=== PATIENT | female | born 1980 | race Caucasian/White ===

== ENCOUNTER 2020-04-24 13:08 | Emergency (ER) | payer BC ==
[~2020-04-24] VITALS: Ht 167.6 cm; Wt 85.3 kg
[2020-04-24 13:10] VITALS: BP 136/97
--- NOTE | 2020-04-24 13:10 | NUR ---
Pt biba from home and placed in bed 9 for COVID precautions.
--- NOTE | 2020-04-24 13:14 | NUR ---
39/F biba from home c/o syncopal episode while in the shower. Pt states she was in the shower when she passed out. Pt was found by her daughter in the shower. Pt states she came to and saw her daughter trying to help her out of the shower. Pt does not know for how long she lost conciousness. Patient is awake and alert x4. Pt also tested positive for covid on 04/19/2020. Hx HTN.
[2020-04-24] MEDS ORDERED: AZITHROMYCIN 500 MG in DEXTROSE 5% 250 ML IV ONE (13:35)
[2020-04-24] MEDS ORDERED: ZINC SULF 220 MG CAP PO ONE (13:35)
[2020-04-24] MEDS ORDERED: DEXAMETHASONE 10 MG/ML VIAL IVP ONE (13:35)
--- NOTE | 2020-04-24 13:45 | NUR ---
RSV, FLU AND COVID SWABS COLLECTED AT THIS TIME
[2020-04-24] MEDS ORDERED: AZITHROMYCIN 500 MG INJ VIAL IV ONE (14:01)
[2020-04-24 14:08] LABS: BASOPHILS # (AUTO) 0.1 K/uL (0.00-0.22); BASOPHILS % (AUTO) 2.3 % (0.0-2.0); HEMATOCRIT 40.3 % (36-48); HEMOGLOBIN 13.8 g/dL (12.0-16.0); LYMPHOCYTES # (AUTO) 1.2 K/uL (2.5-16.5); LYMPHOCYTES % (AUTO) 23.1 % (20.5-51.1); MEAN CORPUSCULAR HEMOGLOBIN 30 pg (27-31); MEAN CORPUSCULAR HGB CONC 34 g/dL (33-37); MEAN CORPUSCULAR VOLUME 86.4 fL (80-94); MONOCYTES # (AUTO) 0.3 K/uL (0.8-1.0); MONOCYTES % (AUTO) 6.1 % (1.7-9.3); NEUTROPHILS # (AUTO) 3.5 K/uL (1.8-7.7); NEUTROPHILS % (AUTO) 68.5 % (42.2-75.2); PLATELET COUNT (AUTO) 255 K/uL (140-450); RED BLOOD CELL COUNT(AUTO) 4.66 MIL/uL (4.20-5.40); WHITE BLOOD COUNT (AUTO) 5.2 K/uL (4.8-10.8)
[2020-04-24 14:23] LABS: PROTHROMBIN TIME 9.3 secs (10.8-13.4)
[2020-04-24 14:26] LABS: C-REACTIVE PROTEIN QUANT 3.5 mg/dL (0.0-0.9)
[2020-04-24] MEDS ORDERED: PROMETH/CODEINE 6.25-10MG/5ML 5 ML UDC PO ONE (14:30)
[2020-04-24] MEDS ORDERED: ASCO500T95 PO (14:41)
[2020-04-24] MEDS ORDERED: AZIT250T3 PO (14:41)
[2020-04-24] MEDS ORDERED: ZINC220C28 PO (14:41)
[2020-04-24] MEDS ORDERED: DEC4 PO (14:41)
[2020-04-24] MEDS ORDERED: PROM473S4 PO (14:41)
[2020-04-24 14:45] LABS: BILIRUBIN,URINE NEGATIVE (NEGATIVE); BLOOD, URINE NEGATIVE (NEGATIVE); COLOR,URINE YELLOW (YELLOW); LEUKOCYTE ESTERASE ,URINE TRACE (NEGATIVE); NITRITE, URINE NEGATIVE (NEGATIVE); UGLUCOSE NEGATIVE (NEGATIVE)
[2020-04-24 14:45] LABS: ANION GAP 15.1 (8-16); CARBON DIOXIDE 26.4 mmol/L (21-32); CREATININE 0.7 mg/dL (0.6-1.3); LACTATE DEHYDROGENASE 213 U/L (81-234); POTASSIUM 3.5 mmol/L (3.5-5.1); TOTAL BILIRUBIN 0.7 mg/dL (0.0-1.0)
[2020-04-24 14:49] LABS: APPEARANCE,URINE HAZY (CLEAR)
[2020-04-24 14:50] LABS: RSV NEGATIVE (NEGATIVE)
[2020-04-24 14:52] LABS: D-DIMER 615 ng/ml (0-400); FIBRINOGEN > 500 mg/dL (200-400)
[2020-04-24 15:07] VITALS: BP 136/97
--- NOTE | 2020-04-24 15:07 | NUR ---
Patient discharged with v/s stable. Written and verbal after care instructions given and explained. Patient alert, oriented and verbalized understanding of instructions. Ambulatory with steady gait. All questions addressed prior to discharge. ID band removed. Patient advised to follow up with PMD. Rx of ASCORBIC ACID, AZITHROMYCIN, DEXAMETHASONE, PROMETHAZINE, ZINC SULFATE given. Patient educated on indication of medication including possible reaction and side effects. Opportunity to ask questions provided and answered.
[2020-04-24 15:13] LABS: RBC,URINE 0-5 /HPF (0-5)
--- NOTE | 2020-04-25 19:19 | NUR ---
LATE ENTRY- ZITHROMAX IVPB DISCONTINUED AT 1507.
--- NOTE | 2020-04-28 23:37 | NUR ---
LATE ENTRY- Positive COVID-19 test results were received from lab. A copy of the test results were placed in infection control mailbox.
== END 2020-04-24 15:07 | disposition home or self-care (01) ==
LOC: MED 13:08
DX: U07.1 COVID-19 (principal); J12.82 Pneumonia due to coronavirus disease 2019; I10 Essential (primary) hypertension; Z79.899 Other long term (current) drug therapy
CPT/HCPCS: 36415; 36600; 70450; 71045; 80053; 81001; 82550; 82728; 82803; 83605; 83615; 83880; 84484; 85025; 85379; 85384; 85610; 85730; 86140; 87040; 87086; 87420; 87804; 93005; 96365; 96375; 99285; J0456; J1100; J7060; U0003

== ENCOUNTER 2020-04-29 11:17 | Emergency (ER) | payer BC ==
[~2020-04-29] VITALS: Ht 154.9 cm; Wt 81.6 kg
[~2020-04-29 11:17] MED LIST: ASCO500T95 PO; AZIT250T3 PO; DEC4 PO; PROM473S4 PO; ZINC220C28 PO
[2020-04-29 11:26] VITALS: BP 146/98
--- NOTE | 2020-04-29 11:28 | NUR ---
Patient ambulated to bed 8 with steady/even gait.
--- NOTE | 2020-04-29 11:32 | NUR ---
39 y/o F coming in from home with c/c Shortness of breath. Patient states COVID-like symptoms since yesterday. Patient states shortness of breath that worsens upon exertion. Patient states she tested Covid positive on 04/19/20, and retested positive on the . Patient states she was seen at [facility] on 04/24/20 after a syncope episode. She was discharged from [facility] with antibiotics of unknown type, which she completed yesterday on 04/28. Patient states BM yesterday morning normal, brown/semi-formed. Pt states associated fever, and cough upon exertion or deep exhalation. Patient denies chills, N/V/D, abdominal pain, constipation, chest pain. Lung sounds diminished lower lobes. Respirations even/unlabored. Pt placed onto captain airline pilot, bed locked in lowest position, side rails x 1, call light in reach. PMH: HTN Meds: Lisinopril NKA Sx: 2017
[2020-04-29] MEDS ORDERED: AZITHROMYCIN 500 MG in DEXTROSE 5% 250 ML IV ONE (11:40)
[2020-04-29] MEDS ORDERED: DEXAMETHASONE 10 MG/ML VIAL IVP ONE (11:40)
--- NOTE | 2020-04-29 11:55 | NUR ---
EMT at bedside for EKG.
--- NOTE | 2020-04-29 11:55 | NUR ---
Makayla/Novel covid swabs, RSV swab, Influenza A/B swab, and blood samples collected, handed to artur Avery tech in ER.
--- NOTE | 2020-04-29 11:57 | NUR ---
Lab at bedside.
[2020-04-29] MEDS ORDERED: AZITHROMYCIN 500 MG INJ VIAL IV ONE (12:05)
[2020-04-29 12:11] LABS: BASOPHILS % (AUTO) 0.2 % (0.0-2.0); EOSINOPHILS # (AUTO) 0.1 K/uL (0-0.4); EOSINOPHILS % (AUTO) 1.2 % (0.0-4.0); HEMATOCRIT 36.4 % (36-48); HEMOGLOBIN 12.7 g/dL (12.0-16.0); LYMPHOCYTES # (AUTO) 1.5 K/uL (2.5-16.5); LYMPHOCYTES % (AUTO) 14.6 % (20.5-51.1); MEAN CORPUSCULAR HEMOGLOBIN 30 pg (27-31); MEAN CORPUSCULAR HGB CONC 35 g/dL (33-37); MEAN CORPUSCULAR VOLUME 86.3 fL (80-94); MONOCYTES # (AUTO) 0.6 K/uL (0.8-1.0); MONOCYTES % (AUTO) 5.7 % (1.7-9.3); NEUTROPHILS # (AUTO) 8.1 K/uL (1.8-7.7); NEUTROPHILS % (AUTO) 78.3 % (42.2-75.2); PLATELET COUNT (AUTO) 378 K/uL (140-450); RED BLOOD CELL COUNT(AUTO) 4.22 MIL/uL (4.20-5.40); RED CELL DISTRIBUTION WIDTH 13.3 % (11.6-13.7); WHITE BLOOD COUNT (AUTO) 10.4 K/uL (4.8-10.8)
--- NOTE | 2020-04-29 12:20 | NUR ---
RT at bedside for ABG draw
[2020-04-29 12:23] LABS: PROTHROMBIN TIME 9.3 secs (10.8-13.4)
[2020-04-29 12:26] LABS: ALBUMIN 3.1 g/dL (3.4-5.0); CARBON DIOXIDE 25.3 mmol/L (21-32); CREATININE 0.6 mg/dL (0.6-1.3); POTASSIUM 3.3 mmol/L (3.5-5.1); TOTAL BILIRUBIN 0.4 mg/dL (0.0-1.0)
[2020-04-29 12:41] LABS: RSV NEGATIVE (NEGATIVE)
--- NOTE | 2020-04-29 12:41 | NUR ---
Patient transported to restroom via wheelchair, returned to bed and placed back onto residential monitor. Bed locked in lowest position, side rails x 1, call light in reach.
[2020-04-29 12:42] LABS: C-REACTIVE PROTEIN QUANT 9.8 mg/dL (0.0-0.9)
--- NOTE | 2020-04-29 12:45 | NUR ---
Urine sample collected, walked to lab and handed to artur Avery tech.
[2020-04-29 12:47] LABS: LACTATE DEHYDROGENASE 282 U/L (81-234)
[2020-04-29 13:21] LABS: APPEARANCE,URINE CLEAR (CLEAR); BILIRUBIN,URINE 1+ (NEGATIVE); BLOOD, URINE NEGATIVE (NEGATIVE); COLOR,URINE YELLOW (YELLOW); LEUKOCYTE ESTERASE ,URINE NEGATIVE (NEGATIVE); NITRITE, URINE NEGATIVE (NEGATIVE); PH,URINE 6.5 (5.0-9.0); UGLUCOSE NEGATIVE (NEGATIVE)
[2020-04-29] MEDS ORDERED: ASCO500T95 PO (14:07)
[2020-04-29] MEDS ORDERED: IVER3TAB2 PO (14:07)
[2020-04-29] MEDS ORDERED: ZINC220C28 PO (14:07)
--- NOTE | 2020-04-29 14:23 | NUR ---
Dr. Caldwell is reevaluating patient at bedside.
[2020-04-29 14:38] VITALS: BP 141/83
--- NOTE | 2020-04-29 14:39 | NUR ---
Patient discharged with v/s stable. Written and verbal after care instructions given and explained. Patient alert, oriented and verbalized understanding of instructions. Wheel Chair Assisted with to car. All questions addressed prior to discharge. ID band removed. Patient advised to follow up with PMD. Rx of IVERMECTIN 3MG TAB PO BID FOR 10DAYS, VITAMIN C 500MG PO BID,. AND ZINC 220MG BID PO FOR 10DAYS given. Patient educated on indication of medication including possible reaction and side effects. Opportunity to ask questions provided and answered.
--- NOTE | 2020-05-01 00:12 | NUR ---
LATE ENTRY- Positive COVID-19 test results were received from lab. A copy of the test results were placed in infection control mailbox.
--- NOTE | 2020-05-02 08:10 | NUR ---
LATE ENTRY -- ZITHROMAX INFUSION COMPLETED 131 04/29/20
== END 2020-04-29 14:39 | disposition home or self-care (01) ==
LOC: MED 11:17
DX: U07.1 COVID-19 (principal); J12.89 Other viral pneumonia; I10 Essential (primary) hypertension; Z79.899 Other long term (current) drug therapy
CPT/HCPCS: 36415; 36600; 71045; 80053; 81003; 82550; 82728; 82803; 83605; 83615; 83880; 84484; 85025; 85379; 85384; 85610; 85730; 86140; 87040; 87086; 87420; 87426; 87804; 93005; 96365; 96375; 99285; J0456; J1100; J7060; U0003

== ENCOUNTER 2020-07-04 05:35 | Emergency (ER) | payer BC ==
[~2020-07-04] VITALS: Ht 154.9 cm; Wt 83.5 kg
[~2020-07-04 05:35] MED LIST changes: +IVER3TAB2 PO
[2020-07-04 05:37] VITALS: BP 151/91
--- NOTE | 2020-07-04 05:37 | NUR ---
TO BED AMBULATORY
--- NOTE | 2020-07-04 06:48 | NUR ---
Dr. Brown examining patient.
--- NOTE | 2020-07-04 07:30 | NUR ---
REPORT RECEIVED FROM JENIFER AND LUIS MIGUEL DURAN, TRANSFER OF CARE AT THIS TIME
[2020-07-04 07:36] LABS: BASOPHILS % (AUTO) 0.4 % (0.0-2.0); EOSINOPHILS # (AUTO) 0.1 K/uL (0-0.4); EOSINOPHILS % (AUTO) 1.3 % (0.0-4.0); HEMATOCRIT 36.2 % (36-48); HEMOGLOBIN 12.6 g/dL (12.0-16.0); LYMPHOCYTES # (AUTO) 1.2 K/uL (2.5-16.5); MEAN CORPUSCULAR HEMOGLOBIN 31 pg (27-31); MEAN CORPUSCULAR HGB CONC 35 g/dL (33-37); MEAN CORPUSCULAR VOLUME 88.3 fL (80-94); MONOCYTES # (AUTO) 0.6 K/uL (0.8-1.0); MONOCYTES % (AUTO) 6.3 % (1.7-9.3); NEUTROPHILS # (AUTO) 7.3 K/uL (1.8-7.7); PLATELET COUNT (AUTO) 296 K/uL (140-450); RED CELL DISTRIBUTION WIDTH 13.1 % (11.6-13.7); WHITE BLOOD COUNT (AUTO) 9.2 K/uL (4.8-10.8)
[2020-07-04] MEDS: NACL 0.9% 1,000 ML IV ONE (07:41)
[2020-07-04] MEDS: KETOROLAC 15 MG/ML VIAL IVP ONE (07:41)
[2020-07-04] MEDS: MORPHINE SULFATE 2 MG/ML SYR IVP ONE (07:42)
[2020-07-04 07:47] LABS: APPEARANCE,URINE CLEAR (CLEAR); BILIRUBIN,URINE NEGATIVE (NEGATIVE); COLOR,URINE YELLOW (YELLOW); LEUKOCYTE ESTERASE ,URINE TRACE (NEGATIVE); NITRITE, URINE NEGATIVE (NEGATIVE); UGLUCOSE NEGATIVE (NEGATIVE)
[2020-07-04 07:48] LABS: ANION GAP 12.2 (8-16); CARBON DIOXIDE 25.3 mmol/L (21-32); CREATININE 0.6 mg/dL (0.6-1.3); POTASSIUM 3.5 mmol/L (3.5-5.1)
[2020-07-04 07:54] LABS: ALBUMIN 3.6 g/dL (3.4-5.0); TOTAL BILIRUBIN 0.8 mg/dL (0.0-1.0)
[2020-07-04 08:06] LABS: WBC,URINE 0-5 /HPF (0-5)
[2020-07-04 08:07] LABS: BLOOD, URINE 1+ (NEGATIVE); RBC,URINE 0-5 /HPF (0-5)
--- NOTE | 2020-07-04 08:51 | NUR ---
PT ALERT AND AWAKE, BREATHING EVEN AND UNLABORED. NO DISTRESS NOTED.
[2020-07-04] MEDS: AMOXIL/CLAVULANATE 875/125 MG 1 TAB PO ONE (09:49)
[2020-07-04] MEDS ORDERED: AMOX1TAB8 PO (09:54)
[2020-07-04] MEDS ORDERED: ONDA-24 PO (09:54)
[2020-07-04] MEDS ORDERED: IBUP-2213 PO (09:54)
--- NOTE | 2020-07-04 10:05 | NUR ---
Patient discharged with v/s stable. Written and verbal after care instructions about diverticulitis given and explained. Patient alert, oriented and verbalized understanding of instructions. Ambulatory with steady gait. All questions addressed prior to discharge. ID band removed. Patient advised to follow up with PMD. Rx of amox-clav, ibuprofen, zofran given. Patient educated on indication of medication including possible reaction and side effects. Opportunity to ask questions provided and answered.
[2020-07-04 10:10] VITALS: BP 45/90
--- NOTE | 2020-07-06 19:32 | NUR ---
LATE ENTRY-- 0.9% NS BOLUS DISCONTINUED AT 0900
== END 2020-07-04 10:05 | disposition home or self-care (01) ==
LOC: MED 05:35
DX: K57.90 Diverticulosis of intestine, part unspecified, without perforation or abscess without bleeding (principal)
CPT/HCPCS: 36415; 74177; 80053; 81001; 81025; 83690; 85025; 96361; 96374; 96375; 99285; J1885; J2270; J7030; Q9967

== ENCOUNTER 2020-07-17 09:16 | Emergency (ER) | payer BC ==
[~2020-07-17] VITALS: Ht 154.9 cm; Wt 88.5 kg
[~2020-07-17 09:16] MED LIST changes: +AMOX1TAB8 PO; +IBUP-2213 PO; +ONDA-24 PO
[2020-07-17 09:25] VITALS: BP 175/103
[2020-07-17] MEDS ORDERED: ONDANSETRON 4 MG/2 ML VIAL IVP ONE (09:50)
[2020-07-17] MEDS ORDERED: NACL 0.9% 1,000 ML IV SCH (09:50)
[2020-07-17] MEDS ORDERED: fentaNYL citrate 0.05 MG/ML VIAL IVP ONE (09:50)
[2020-07-17 10:10] LABS: BASOPHILS # (AUTO) 0.1 K/uL (0.00-0.22); BASOPHILS % (AUTO) 0.8 % (0.0-2.0); EOSINOPHILS # (AUTO) 0.2 K/uL (0-0.4); EOSINOPHILS % (AUTO) 2.7 % (0.0-4.0); HEMATOCRIT 35.9 % (36-48); HEMOGLOBIN 12.4 g/dL (12.0-16.0); LYMPHOCYTES # (AUTO) 2.1 K/uL (2.5-16.5); LYMPHOCYTES % (AUTO) 29.6 % (20.5-51.1); MEAN CORPUSCULAR HEMOGLOBIN 31 pg (27-31); MEAN CORPUSCULAR HGB CONC 35 g/dL (33-37); MONOCYTES # (AUTO) 0.4 K/uL (0.8-1.0); MONOCYTES % (AUTO) 5.9 % (1.7-9.3); NEUTROPHILS # (AUTO) 4.3 K/uL (1.8-7.7); PLATELET COUNT (AUTO) 303 K/uL (140-450); RED BLOOD CELL COUNT(AUTO) 4.08 MIL/uL (4.20-5.40); WHITE BLOOD COUNT (AUTO) 7.1 K/uL (4.8-10.8)
[2020-07-17 10:31] LABS: PROTHROMBIN TIME 9.7 secs (10.8-13.4)
[2020-07-17 10:42] LABS: ANION GAP 11.7 (8-16); CARBON DIOXIDE 27.1 mmol/L (21-32); CREATININE 0.6 mg/dL (0.6-1.3); POTASSIUM 3.8 mmol/L (3.5-5.1); TOTAL BILIRUBIN 0.5 mg/dL (0.0-1.0)
[2020-07-17 12:25] VITALS: BP 175/103
== END 2020-07-17 12:26 | disposition home or self-care (01) ==
LOC: MED 09:16
DX: K57.92 Diverticulitis of intestine, part unspecified, without perforation or abscess without bleeding (principal); R19.7 Diarrhea, unspecified; R11.0 Nausea; I10 Essential (primary) hypertension; Z90.49 Acquired absence of other specified parts of digestive tract; Z98.890 Other specified postprocedural states; Z79.899 Other long term (current) drug therapy
CPT/HCPCS: 36415; 74177; 80053; 81002; 81025; 83605; 85025; 85610; 85730; 87040; 93005; 96361; 96374; 96375; 99285; J2405; J3010; J7030; Q9967; 99284

== ENCOUNTER 2020-08-06 10:41 | Emergency (ER) | payer BC ==
[~2020-08-06] VITALS: Ht 154.9 cm; Wt 82.6 kg
[2020-08-06 10:47] VITALS: BP 161/89
--- NOTE | 2020-08-06 11:01 | NUR ---
39 Y/O M BIB SELF FROM HOME, PATIENT PRESENTS TO ED WITH SHARP RLQ ABD PAIN AND NAUSEA. PT STATES SHE TOOK 3 TESTS WITH ALL OF THEM BEING POSITIVE. DENIES V/D, CONSTIPATION, DYSURIA; SKIN IS PINK/WARM/DRY; AAOX4 WITH EVEN AND STEADY GAIT; LUNGS CLEAR BL; HR EVEN AND REGULAR; PT DENIES ANY FEVER, CP, SOB, OR COUGH AT THIS TIME; PATIENT STATES PAIN OF 9/10 AT THIS TIME; VSS; PATIENT POSITIONED FOR COMFORT; HOB ELEVATED; BEDRAILS UP X2; BED DOWN. ER MD MADE AWARE OF PT STATUS. PMH: HTN, DIVERTICULITIS NKA
--- NOTE | 2020-08-06 11:31 | NUR ---
US AT BEDSIDE.
[2020-08-06 12:32] LABS: BASOPHILS % (AUTO) 0.7 % (0.0-2.0); EOSINOPHILS # (AUTO) 0.2 K/uL (0-0.4); EOSINOPHILS % (AUTO) 2.8 % (0.0-4.0); HEMOGLOBIN 11.7 g/dL (12.0-16.0); LYMPHOCYTES % (AUTO) 28.5 % (20.5-51.1); MEAN CORPUSCULAR HEMOGLOBIN 30 pg (27-31); MEAN CORPUSCULAR HGB CONC 35 g/dL (33-37); MEAN CORPUSCULAR VOLUME 87.8 fL (80-94); MONOCYTES # (AUTO) 0.5 K/uL (0.8-1.0); MONOCYTES % (AUTO) 6.5 % (1.7-9.3); NEUTROPHILS # (AUTO) 4.4 K/uL (1.8-7.7); NEUTROPHILS % (AUTO) 61.5 % (42.2-75.2); PLATELET COUNT (AUTO) 263 K/uL (140-450); RED BLOOD CELL COUNT(AUTO) 3.88 MIL/uL (4.20-5.40); RED CELL DISTRIBUTION WIDTH 12.7 % (11.6-13.7); WHITE BLOOD COUNT (AUTO) 7.1 K/uL (4.8-10.8)
--- NOTE | 2020-08-06 14:13 | NUR ---
URINE WAS COLLECTED AND GIVEN TO ALMA
[2020-08-06] MEDS ORDERED: ACETAMINOPHEN 325 MG TAB PO ONE (14:35)
[2020-08-06 14:51] LABS: BILIRUBIN,URINE NEGATIVE (NEGATIVE); BLOOD, URINE 2+ (NEGATIVE); COLOR,URINE YELLOW (YELLOW); LEUKOCYTE ESTERASE ,URINE TRACE (NEGATIVE); NITRITE, URINE NEGATIVE (NEGATIVE); UGLUCOSE NEGATIVE (NEGATIVE)
[2020-08-06 14:53] LABS: APPEARANCE,URINE HAZY (CLEAR)
[2020-08-06 15:01] LABS: RBC,URINE NONE SEEN /HPF (0-5); WBC,URINE 0-5 /HPF (0-5)
[2020-08-06] MEDS ORDERED: NITR100C7 PO (15:18)
[2020-08-06 15:32] VITALS: BP 161/89
--- NOTE | 2020-08-06 15:33 | NUR ---
Patient discharged with v/s stable. Written and verbal after care instructions given and explained. Patient alert, oriented and verbalized understanding of instructions. Ambulatory with steady gait. All questions addressed prior to discharge. ID band removed. Patient advised to follow up with PMD. Rx of NITROFURANTOIN given. Patient educated on indication of medication including possible reaction and side effects. Opportunity to ask questions provided and answered.
== END 2020-08-06 15:33 | disposition home or self-care (01) ==
LOC: MED 10:41
DX: O26.891 Other specified pregnancy related conditions, first trimester (principal); R10.31 Right lower quadrant pain; I10 Essential (primary) hypertension; Z3A.01 Less than 8 weeks gestation of pregnancy; Z79.899 Other long term (current) drug therapy
CPT/HCPCS: 36415; 76817; 81001; 81025; 84702; 85025; 86900; 86901; 99284

== ENCOUNTER 2020-09-04 19:34 | Emergency (ER) | payer BC ==
[~2020-09-04] VITALS: Ht 154.9 cm; Wt 87.1 kg
[~2020-09-04 19:34] MED LIST changes: +NITR100C7 PO
[2020-09-04 19:49] VITALS: BP 150/98
[2020-09-04] MEDS ORDERED: NACL 0.9% 1,000 ML IV ONE (20:35)
[2020-09-04] MEDS ORDERED: ACETAMINOPHEN EXTRA STRENGTH 500 MG TAB PO ONE (20:35)
--- NOTE | 2020-09-04 21:16 | NUR ---
TO BED 5 AMBULATORY
--- NOTE | 2020-09-04 21:17 | NUR ---
PATIENT BIB SELF FOR C/O R SIDED PELVIC PAIN RADIATING TO LOW BACK AND R LEG. PATIENT DENIES ANY VAGINAL BLEEDING OR DISCHARGE. PATIENT STATES 9 WEEKS . G8L7. ABDOMINAL PAIN 10/25 SHARP. TYLENOL TAKEN WITH NO RELIEF EARLIER TODAY. AAOX4. VSS. MEDHX: HTN, APPENDECTOMY, DIVERTICULITIS NKA
[2020-09-04 21:33] LABS: BASOPHILS % (AUTO) 0.3 % (0.0-2.0); EOSINOPHILS # (AUTO) 0.3 K/uL (0-0.4); EOSINOPHILS % (AUTO) 3.2 % (0.0-4.0); HEMATOCRIT 34.6 % (36-48); HEMOGLOBIN 11.8 g/dL (12.0-16.0); LYMPHOCYTES # (AUTO) 1.6 K/uL (2.5-16.5); LYMPHOCYTES % (AUTO) 19.9 % (20.5-51.1); MEAN CORPUSCULAR HEMOGLOBIN 30 pg (27-31); MEAN CORPUSCULAR HGB CONC 34 g/dL (33-37); MEAN CORPUSCULAR VOLUME 88.1 fL (80-94); MONOCYTES # (AUTO) 0.5 K/uL (0.8-1.0); MONOCYTES % (AUTO) 5.9 % (1.7-9.3); NEUTROPHILS # (AUTO) 5.6 K/uL (1.8-7.7); NEUTROPHILS % (AUTO) 70.7 % (42.2-75.2); PLATELET COUNT (AUTO) 268 K/uL (140-450); RED BLOOD CELL COUNT(AUTO) 3.93 MIL/uL (4.20-5.40); RED CELL DISTRIBUTION WIDTH 12.9 % (11.6-13.7)
--- NOTE | 2020-09-04 21:38 | NUR ---
ULTRASOUND AT BEDSIDE
[2020-09-04 21:39] LABS: APPEARANCE,URINE CLEAR (CLEAR); BLOOD, URINE NEGATIVE (NEGATIVE); COLOR,URINE YELLOW (YELLOW); PH,URINE 5.5 (5.0-9.0); UGLUCOSE NEGATIVE (NEGATIVE)
[2020-09-04 21:40] LABS: BILIRUBIN,URINE NEGATIVE (NEGATIVE); LEUKOCYTE ESTERASE ,URINE NEGATIVE (NEGATIVE); NITRITE, URINE NEGATIVE (NEGATIVE)
--- NOTE | 2020-09-04 22:01 | NUR ---
PATIENT AMBULATED TO THE BATHROOM
[2020-09-04 22:07] LABS: ALBUMIN 3.6 g/dL (3.4-5.0); ANION GAP 13.3 (8-16); CARBON DIOXIDE 24.6 mmol/L (21-32); CREATININE 0.8 mg/dL (0.6-1.3); POTASSIUM 3.9 mmol/L (3.5-5.1); TOTAL BILIRUBIN 0.3 mg/dL (0.0-1.0)
[2020-09-04] MEDS ORDERED: ONDA-24 SL (23:21)
--- NOTE | 2020-09-04 23:38 | NUR ---
IV removed, catheter intact and site benign. Applied folded 4x4 gauze and tape to stop bleeding.
[2020-09-04 23:43] VITALS: BP 96/68
--- NOTE | 2020-09-04 23:43 | NUR ---
Patient discharged with v/s stable. Written and verbal after care instructions given and explained. Patient alert, oriented and verbalized understanding of instructions. Ambulatory with steady gait. All questions addressed prior to discharge. ID band removed. Patient advised to follow up with PMD. Rx of ZOFRAN ODT given. Patient educated on indication of medication including possible reaction and side effects. Opportunity to ask questions provided and answered.
== END 2020-09-04 23:43 | disposition home or self-care (01) ==
LOC: MED 19:34
DX: O26.891 Other specified pregnancy related conditions, first trimester (principal); R10.2 Pelvic and perineal pain; I10 Essential (primary) hypertension; Z3A.08 8 weeks gestation of pregnancy; Z90.49 Acquired absence of other specified parts of digestive tract; Z79.899 Other long term (current) drug therapy
CPT/HCPCS: 36415; 76705; 76801; 80053; 81003; 84702; 85025; 96360; 99285; J7030

== ENCOUNTER 2020-10-19 00:04 | Emergency (ER) | payer BC, MEDICAID ==
[~2020-10-19] VITALS: Ht 154.9 cm; Wt 87.5 kg
[~2020-10-19 00:04] MED LIST changes: +ONDA-24 SL
[2020-10-19 00:15] VITALS: BP 145/90
--- NOTE | 2020-10-19 00:18 | NUR ---
TO LOBBY A/W BED AMBULATORY
[2020-10-19 00:56] LABS: BASOPHILS # (AUTO) 0.1 K/uL (0.00-0.22); BASOPHILS % (AUTO) 0.6 % (0.0-2.0); EOSINOPHILS # (AUTO) 0.2 K/uL (0-0.4); EOSINOPHILS % (AUTO) 2.3 % (0.0-4.0); HEMATOCRIT 33.9 % (36-48); HEMOGLOBIN 11.6 g/dL (12.0-16.0); LYMPHOCYTES % (AUTO) 22.5 % (20.5-51.1); MEAN CORPUSCULAR HEMOGLOBIN 30 pg (27-31); MEAN CORPUSCULAR HGB CONC 34 g/dL (33-37); MEAN CORPUSCULAR VOLUME 87.9 fL (80-94); MONOCYTES # (AUTO) 0.6 K/uL (0.8-1.0); MONOCYTES % (AUTO) 6.6 % (1.7-9.3); NEUTROPHILS # (AUTO) 6.1 K/uL (1.8-7.7); PLATELET COUNT (AUTO) 273 K/uL (140-450); RED BLOOD CELL COUNT(AUTO) 3.86 MIL/uL (4.20-5.40); RED CELL DISTRIBUTION WIDTH 14.2 % (11.6-13.7); WHITE BLOOD COUNT (AUTO) 8.9 K/uL (4.8-10.8)
--- NOTE | 2020-10-19 01:04 | NUR ---
Isabela mehta in [facility] - 10/19/20 at 0113 by KYMBERLY PATIENT AMBULATED TO BED 12
[2020-10-19 01:12] LABS: ALBUMIN 2.9 g/dL (3.4-5.0); ANION GAP 12.6 (8-16); CARBON DIOXIDE 22.2 mmol/L (21-32); CREATININE 0.6 mg/dL (0.6-1.3); POTASSIUM 3.8 mmol/L (3.5-5.1); TOTAL BILIRUBIN 0.3 mg/dL (0.0-1.0)
--- NOTE | 2020-10-19 01:18 | NUR ---
PATIENT AMBULATED TO BED 9
--- NOTE | 2020-10-19 01:22 | NUR ---
C/O VAGINAL BLEEDING THAT STARTED AT 2300 YESTERDAY. PATIENT REPORTS THAT IT WAS BROWNISH DISCHARGE AT FIRST AND THEN PATIENT FELT LIKE GOING TO THE BATHROOM TO POOP AND WIPED AND SAW THAT IT WAS RED. PATIENT THEN STARTED FEELING CRAMPING PAIN OF 8/10 THAT STARTS FROM THE BACK AND GOES TO THE FRONT. PATIENT IS 16 WEEKS . AAOX4. VSS. G8L7 PMH: HTN NKA
[2020-10-19 01:44] LABS: APPEARANCE,URINE SL CLOUDY (CLEAR); BILIRUBIN,URINE NEGATIVE (NEGATIVE); BLOOD, URINE 2+ (NEGATIVE); COLOR,URINE YELLOW (YELLOW); LEUKOCYTE ESTERASE ,URINE TRACE (NEGATIVE); NITRITE, URINE NEGATIVE (NEGATIVE); PH,URINE 6.5 (5.0-9.0); UGLUCOSE NEGATIVE (NEGATIVE)
[2020-10-19 01:59] LABS: RBC,URINE 0-5 /HPF (0-5); WBC,URINE 0-5 /HPF (0-5)
[2020-10-19] MEDS ORDERED: CEPH-588 PO (02:01)
--- NOTE | 2020-10-19 02:07 | NUR ---
ULTRASOUND AT BEDSIDE
--- NOTE | 2020-10-19 03:49 | NUR ---
patient ambulated to the bathroom and changed back into outside clothes.
[2020-10-19 04:42] VITALS: BP 122/82
== END 2020-10-19 04:42 | disposition home or self-care (01) ==
LOC: MED 00:04
DX: O20.0 Threatened abortion (principal); I10 Essential (primary) hypertension; Z79.899 Other long term (current) drug therapy; Z3A.16 16 weeks gestation of pregnancy
CPT/HCPCS: 36415; 76805; 80053; 81001; 85025; 86900; 86901; 99284; Q0092

== ENCOUNTER 2021-06-27 13:41 | Emergency (ER) | payer MEDICAID ==
[~2021-06-27] VITALS: Ht 160 cm; Wt 83.9 kg
[~2021-06-27 13:41] MED LIST changes: +AMOX-1230 PO; -AMOX1TAB8 PO; +CEPH-588 PO; +ONDA-188 PO; +ONDA-188 SL; -ONDA-24 PO; -ONDA-24 SL
[2021-06-27 13:54] VITALS: BP 140/78
--- NOTE | 2021-06-27 14:37 | NUR ---
COVID SWAB WALKED TO LAB
[2021-06-27] MEDS ORDERED: guaiFENesin 20 MG/ML UDC PO ONE (15:20)
[2021-06-27] MEDS ORDERED: guaiFENesin DM 200/20 MG-10 ML 10 ML UDC ONE (15:23)
--- NOTE | 2021-06-27 15:58 | NUR ---
PT MEDICATED FOR COUGH PER ORDER
[2021-06-27] MEDS ORDERED: NIRM1TAB PO (15:59)
[2021-06-27] MEDS ORDERED: PROM118S5 PO (15:59)
[2021-06-27 16:28] VITALS: BP 107/80
--- NOTE | 2021-06-27 16:29 | NUR ---
Patient discharged with v/s stable. Written and verbal after care instructions given and explained. Patient verbalized understanding. Ambulatory with steady gait. All questions addressed prior to discharge. Advised to follow up with PMD.
== END 2021-06-27 16:29 | disposition home or self-care (01) ==
LOC: MED 13:41
DX: U07.1 COVID-19 (principal); I10 Essential (primary) hypertension; Z79.899 Other long term (current) drug therapy
CPT/HCPCS: 99283

== ENCOUNTER 2022-04-23 23:06 | Inpatient (IN) | payer MEDICAID, OTHER ==
[~2022-04-23] VITALS: Ht 154.9 cm; Wt 81.6 kg
[~2022-04-23 23:06] MED LIST changes: +NIRM1TAB PO; +PROM118S5 PO
[2022-04-23 23:13] VITALS: BP 179/90
--- NOTE | 2022-04-23 23:16 | NUR ---
TO LOBBY A/W BED AMBULATORY
--- NOTE | 2022-04-23 23:30 | NUR ---
ambulated to bed 5 from [facility]
[2022-04-23 23:45] LABS: APPEARANCE,URINE CLEAR (CLEAR); BILIRUBIN,URINE NEGATIVE (NEGATIVE); BLOOD, URINE NEGATIVE (NEGATIVE); COLOR,URINE YELLOW (YELLOW); LEUKOCYTE ESTERASE ,URINE NEGATIVE (NEGATIVE); NITRITE, URINE NEGATIVE (NEGATIVE); UGLUCOSE NEGATIVE (NEGATIVE)
--- NOTE | 2022-04-24 02:09 | NUR ---
PT TO BED
--- NOTE | 2022-04-24 02:31 | NUR ---
EDMD AT BEDSIDE.
[2022-04-24] MEDS ORDERED: KETOROLAC 30 MG/ML VIAL IM ONE (02:40)
[2022-04-24 02:51] LABS: BASOPHILS # (AUTO) 0.1 K/uL (0.00-0.22); BASOPHILS % (AUTO) 0.6 % (0.0-2.0); EOSINOPHILS # (AUTO) 0.2 K/uL (0-0.4); EOSINOPHILS % (AUTO) 1.6 % (0.0-4.0); HEMATOCRIT 36.3 % (36-48); HEMOGLOBIN 12.6 g/dL (12.0-16.0); LYMPHOCYTES # (AUTO) 2.3 K/uL (2.5-16.5); LYMPHOCYTES % (AUTO) 22.8 % (20.5-51.1); MEAN CORPUSCULAR HEMOGLOBIN 30 pg (27-31); MEAN CORPUSCULAR HGB CONC 35 g/dL (33-37); MEAN CORPUSCULAR VOLUME 86.7 fL (80-94); MONOCYTES # (AUTO) 0.5 K/uL (0.8-1.0); MONOCYTES % (AUTO) 5.2 % (1.7-9.3); NEUTROPHILS % (AUTO) 69.8 % (42.2-75.2); PLATELET COUNT (AUTO) 292 K/uL (140-450); RED BLOOD CELL COUNT(AUTO) 4.18 MIL/uL (4.20-5.40); RED CELL DISTRIBUTION WIDTH 13.1 % (11.6-13.7)
[2022-04-24 03:32] LABS: ANION GAP 10.4 (8-16); ASPARTATE AMINOTRANSFERASE 25 U/L (15-37); CARBON DIOXIDE 28.5 mmol/L (21-32); CHLORIDE 102 mmol/L (98-107); CREATININE 0.6 mg/dL (0.6-1.3); GFR ARICAN-AMERICAN 142 mL/min (>90); GLUCOSE 101 mg/dL (74-106); LIPASE 115 U/L (73-393); POTASSIUM 3.9 mmol/L (3.5-5.1); SODIUM SERUM 137 mmol/L (136-145); TOTAL BILIRUBIN 0.6 mg/dL (0.0-1.0); UREA NITROGEN, BLOOD 15 mg/dL (7-18)
[2022-04-24] MEDS ORDERED: ONDANSETRON 4 MG ODT PO ONE (03:55)
[2022-04-24] MEDS ORDERED: LORazepam 0.5 MG TAB PO ONE (05:00)
[2022-04-24] MEDS ORDERED: MORPHINE SULFATE 4 MG/ML SYR IVP ONE (05:40)
[2022-04-24] MEDS ORDERED: metroNIDAZOLE 500 MG/NS PREMIX 100 ML IV ONE (05:40)
[2022-04-24] MEDS ORDERED: ONDANSETRON 4 MG/2 ML VIAL IVP ONE (05:40)
[2022-04-24] MEDS ORDERED: NACL 0.9% 1,000 ML IV ONE (05:40)
[2022-04-24] MEDS ORDERED: LEVOFLOXACIN 750 MG/D5W PREMIX 150 ML IV ONE (05:40)
[2022-04-24] MEDS ORDERED: MAG SULF 2000 MG/WATER PREMIX 50 ML IV PRN (05:55)
[2022-04-24] MEDS ORDERED: LORazepam 1 MG TAB PO PRN (05:55)
[2022-04-24] MEDS ORDERED: MORPHINE SULFATE 4 MG/ML SYR IVP PRN (05:55)
[2022-04-24] MEDS ORDERED: POTASSIUM CHLORIDE 10 MEQ TABER PO PRN (05:55)
[2022-04-24] MEDS ORDERED: ZOLPIDEM 5 MG TAB PO PRN (05:55)
[2022-04-24] MEDS ORDERED: KCL 20 MEQ IN 100 mL PREMIX 200 ML IV PRN (05:55)
[2022-04-24] MEDS ORDERED: HYDROcodone/APAP 5/325 MG 1 TAB TAB PO PRN (05:55)
[2022-04-24] MEDS ORDERED: CLONIDINE HYDROCHLORIDE 0.1 MG TAB PO PRN (06:00)
--- NOTE | 2022-04-24 07:22 | NUR ---
Recieved report from RENEE Dinero for transfer of care.
--- NOTE | 2022-04-24 09:40 | NUR ---
PATIENT HAS BEEN SCREENED AND CATEGORIZED LOW NUTRITION RISK. PATIENT WILL BE SEEN WITHIN 7 DAYS OF ADMISSION. 05/01/22 RE[address] BY HEMA FOR[address]
[2022-04-24] MEDS: DEXT 5% /NACL 0.9% 1,000 ML IV SCH ×2 (10:32→18:25)
[2022-04-24] MEDS: DOCUSATE SODIUM 100 MG GELCAP PO SCH (10:39)
--- NOTE | 2022-04-24 10:40 | NUR ---
New IV placed on left forearm. Old IV site discontinued.
[2022-04-24] MEDS: ENOXAPARIN 40 MG/0.4 ML SYR SUBQ SCH (10:42)
--- NOTE | 2022-04-24 11:23 | NUR ---
Patient ambulated to restroom with steady gait.
--- NOTE | 2022-04-24 13:44 | NUR ---
Patient is alert and verbally responsive, laying in bed. All needs met by staff.
[2022-04-24] MEDS: metroNIDAZOLE 500 MG/NS PREMIX 100 ML IV SCH ×2 (14:00→21:19)
--- NOTE | 2022-04-24 15:00 | NUR ---
Patient is laying in bed, respirations even and unlabored. All needs met by staff.
--- NOTE | 2022-04-24 17:23 | NUR ---
Patient is alert and verbally responsive, all needs met by staff. Patient is resting on bed.
[2022-04-24] MEDS: ACETAMINOPHEN 325 MG TAB PO PRN (18:30)
[2022-04-24] MEDS: ONDANSETRON 4 MG/2 ML VIAL IVP PRN (18:32)
--- NOTE | 2022-04-24 19:20 | NUR ---
Report given to RENEE Dinero for transfer of care.
--- NOTE | 2022-04-24 19:29 | NUR ---
PT RC'D IN BED 8. PT HAS FLUIDS FLOWING AWAITING A ROOM ON THE FLOOR. PT IS RESTING COMFORTABLY.
[2022-04-25] MEDS: ACETAMINOPHEN 325 MG TAB PO PRN ×2 (04:27→21:36)
[2022-04-25] MEDS: metroNIDAZOLE 500 MG/NS PREMIX 100 ML IV SCH ×3 (05:27→21:49)
[2022-04-25] MEDS: LEVOFLOXACIN 500 MG/D5W PREMIX 100 ML IV SCH (05:40)
--- NOTE | 2022-04-25 08:45 | NUR ---
REPORT RECEIVED FROM RADHA DURAN. ASSUMED CARE AT THIS TIME
--- NOTE | 2022-04-25 08:46 | NUR ---
pt awake and rest. denies pain or nausea at this time. respirations even and unlabored. bed at lowest position, bed rails upx1
[2022-04-25] MEDS: DEXT 5% /NACL 0.9% 1,000 ML IV SCH ×2 (09:05→21:57)
[2022-04-25] MEDS: DOCUSATE SODIUM 100 MG GELCAP PO SCH (09:13)
[2022-04-25] MEDS: ENOXAPARIN 40 MG/0.4 ML SYR SUBQ SCH (09:14)
--- NOTE | 2022-04-25 10:51 | NUR ---
pt amb w/ steady gait to restroom
--- NOTE | 2022-04-25 10:58 | NUR ---
pt amb back to bed
[2022-04-25] MEDS: ONDANSETRON 4 MG/2 ML VIAL IVP PRN ×2 (11:38→16:21)
--- NOTE | 2022-04-25 14:23 | NUR ---
Patient will be admitted to care of MD DORANTES. Admited to M/S. Will go to [id number]. Belongings list completed. Report to AARTI DURAN.
[2022-04-25 16:00] VITALS: BP 167/100
[2022-04-25 20:00] VITALS: BP 126/84
--- NOTE | 2022-04-25 20:00 | NUR ---
NURSE REPORT REPORT OBTAINED FROM [facility] NURSE ADRYAN AND THIS NURSE ASSUMED CARE OF PATIENT. VSS. AFEB. NO C/O PAIN OR DISCOMFORT. IV IN R HAND NOT WORKING. IV SITE INSERTED IN LEFT WRIST WITH 22 G . IV D5NS INFUSING AT 80 ML/HR.
--- NOTE | 2022-04-25 22:00 | NUR ---
NURSE NOTES GIVEN IVPB FLAGYL AND IV INFUSING WELL.
--- NOTE | 2022-04-26 | NUR ---
NURSE NOTES PATIENT SLEEPING WITHOUT ANY C/O PAIN OR DISCOMFORT.
--- NOTE | 2022-04-26 03:00 | NUR ---
NURSE NOTES VSS. AFEB. NO C/O PAIN OR DISCOMFORT.
[2022-04-26 04:00] VITALS: BP 135/90
[2022-04-26] MEDS: metroNIDAZOLE 500 MG/NS PREMIX 100 ML IV SCH ×2 (05:26→13:46)
[2022-04-26] MEDS: LEVOFLOXACIN 500 MG/D5W PREMIX 100 ML IV SCH (05:29)
[2022-04-26 06:09] LABS: BASOPHILS % (AUTO) 0.5 % (0.0-2.0); EOSINOPHILS # (AUTO) 0.1 K/uL (0-0.4); EOSINOPHILS % (AUTO) 2.4 % (0.0-4.0); HEMATOCRIT 35.3 % (36-48); HEMOGLOBIN 12.4 g/dL (12.0-16.0); LYMPHOCYTES # (AUTO) 1.5 K/uL (2.5-16.5); LYMPHOCYTES % (AUTO) 26.1 % (20.5-51.1); MEAN CORPUSCULAR HEMOGLOBIN 31 pg (27-31); MEAN CORPUSCULAR HGB CONC 35 g/dL (33-37); MEAN CORPUSCULAR VOLUME 88.1 fL (80-94); MONOCYTES # (AUTO) 0.4 K/uL (0.8-1.0); MONOCYTES % (AUTO) 7.6 % (1.7-9.3); NEUTROPHILS # (AUTO) 3.5 K/uL (1.8-7.7); NEUTROPHILS % (AUTO) 63.4 % (42.2-75.2); PLATELET COUNT (AUTO) 254 K/uL (140-450); RED BLOOD CELL COUNT(AUTO) 4.01 MIL/uL (4.20-5.40); RED CELL DISTRIBUTION WIDTH 12.7 % (11.6-13.7); WHITE BLOOD COUNT (AUTO) 5.6 K/uL (4.8-10.8)
[2022-04-26 06:36] LABS: ANION GAP 9.5 (8-16); CARBON DIOXIDE 29.1 mmol/L (21-32); CREATININE 0.7 mg/dL (0.6-1.3); POTASSIUM 3.6 mmol/L (3.5-5.1)
[2022-04-26] MEDS: DEXT 5% /NACL 0.9% 1,000 ML IV SCH (07:55)
[2022-04-26 08:00] VITALS: BP 145/90
--- NOTE | 2022-04-26 08:00 | NUR ---
NURSE REPORT REPORT GIVEN TO [facility] NURSE ADRYAN TO ASSUME CARE OF PATIENT. ALL QUESTIONS ANSWERED. ALBER JOEL RN
--- NOTE | 2022-04-26 08:46 | NUR ---
NURSE NOTES SAMPSON DRAINED 350 ML YELLOW URINE AND FANNIE DRAINING DARK RED FLUID.
[2022-04-26] MEDS: DOCUSATE SODIUM 100 MG GELCAP PO SCH (09:00)
[2022-04-26] MEDS: ENOXAPARIN 40 MG/0.4 ML SYR SUBQ SCH (09:00)
[2022-04-26] MEDS ORDERED: LEVO-481 PO (12:40)
[2022-04-26] MEDS ORDERED: METR-520 PO (12:40)
== END 2022-04-26 14:05 | disposition home or self-care (01) | DRG 244 ==
LOC: MED 23:06 → MMU 04-24 05:58 → OBSVTOIN 04-24 05:58 → MMU 04-24 05:58 → MTU 04-24 18:24 → MMU 04-25 14:01
PROVIDERS: ADMIT Hospitalist; ATTEND Hospitalist
DX: K57.92 Diverticulitis of intestine, part unspecified, without perforation or abscess without bleeding (principal); J90 Pleural effusion, not elsewhere classified; K57.90 Diverticulosis of intestine, part unspecified, without perforation or abscess without bleeding; N83.202 Unspecified ovarian cyst, left side; N83.201 Unspecified ovarian cyst, right side; R16.0 Hepatomegaly, not elsewhere classified; Z20.822 Contact with and (suspected) exposure to COVID-19; Z79.899 Other long term (current) drug therapy
CPT/HCPCS: 36415; 36430; 71045; 80048; 80053; 81003; 83690; 83735; 84484; 85025; 87081; 93005; 96361; 96365; 96372; 96375; 99285; J1650; J1885; J1956; J2270; J2405; J3490; Q0162